=== PATIENT | female | born 2000 | race Caucasian/White ===

== ENCOUNTER 2023-06-08 12:32 | Inpatient (IN) | payer OTHER ==
[~2023-06-08] VITALS: Ht 152.4 cm; Wt 77.1 kg
[2023-06-08] VITALS (34 sets, daily range): BP systolic 125–170; BP diastolic 74–107
[2023-06-08] MEDS ORDERED: TUMS750C5 PO (13:08)
[2023-06-08] MEDS ORDERED: MULTTAB20 PO (13:08)
[2023-06-08] MEDS ORDERED: CLAR10CA3 PO (13:08)
[2023-06-08] MEDS ORDERED: HOME MED LIST COMPLETE! XX SCH (13:10)
[2023-06-08] MEDS ORDERED: LACTATED RINGER'S 1000 ML IV STA (14:27)
[2023-06-08] MEDS ORDERED: TRANEXAMIC ACID INJection 1,000 MG in NS 100 ML IV PRN (14:30)
[2023-06-08] MEDS ORDERED: OXYTOCIN DRIP 30 UNITS in IV 1 EA IV PRN ×4 (14:30)
[2023-06-08] MEDS ORDERED: LIDOCAINE 1% MDV 20ML VIAL INFIL PRN (14:30)
[2023-06-08] MEDS ORDERED: LR 1,000 ML IV SCH (14:30)
[2023-06-08] MEDS ORDERED: miSOPROStol 50MCG 1/2 TABLET PO PRN (14:30)
[2023-06-08] MEDS ORDERED: CARBOPROST TROMETHAMINE 250 MCG/ML AMP IM PRN (14:30)
[2023-06-08 14:32] LABS: HEMATOCRIT 34.6 % (36.0-47.0); HEMOGLOBIN 11.5 g/dl (12.0-15.5); MEAN CORPUSCULAR HEMOGLOBIN 29.1 pg (27.0-33.0); MEAN CORPUSCULAR HGB CONC 33.2 g/dl (32.0-36.5); MEAN CORPUSCULAR VOLUME 87.6 fl (80.0-96.0); PLATELET COUNT, AUTOMATED 209 10^3/uL (150-450); RED BLOOD COUNT 3.95 10^6/uL (4.00-5.40); WHITE BLOOD COUNT 9.4 10^3/uL (4.0-10.0)
[2023-06-08] MEDS ORDERED: miSOPROStol 50MCG 1/2 TABLET SL PRN (14:55)
[2023-06-08] MEDS ORDERED: NALOXONE INJ 0.4MG/1ML VIAL IV PRN (20:40)
[2023-06-08] MEDS ORDERED: ePHEDrine SULFATE 25 MG/5 ML(5MG/ML) SYRINGE IVP PRN (20:40)
[2023-06-08] MEDS ORDERED: LR 500 ML IV PRN (20:40)
[2023-06-08] MEDS ORDERED: EPIDURAL/PCA KEYS XX PRN (20:40)
[2023-06-08] MEDS ORDERED: FENTANYL/ROPIVACAINE/NACL BAG 100 ML EPIDURAL SCH (20:40)
[2023-06-08] MEDS ORDERED: diphenhydrAMINE 50MG/ML VIAL IV PRN (20:40)
[2023-06-08] MEDS ORDERED: ONDANSETRON 4MG 2ML VIAL IV PRN (20:40)
[2023-06-09] VITALS (32 sets, daily range): BP systolic 98–168; BP diastolic 55–94; TEMP 96.7; O2SAT 99
[2023-06-09] MEDS ORDERED: TERBUTALINE SULFATE 1 MG/ML 1ML VIAL As Ordered ONE (01:19)
[2023-06-09] MEDS ORDERED: METHYLERGONOVINE MALEATE 0.2MG/ML 1ML VIAL IM PRN (03:05)
[2023-06-09] MEDS ORDERED: OXYTOCIN DRIP 30 UNITS in IV 1 EA IV SCH (03:05)
[2023-06-09] MEDS: LR 1,000 ML IV SCH ×3 (03:05→20:16)
[2023-06-09] MEDS ORDERED: DIBUCAINE 1% OINTMENT 30GM TOP PRN (03:05)
[2023-06-09] MEDS ORDERED: DOCUSATE SODIUM 100MG CAPSULE PO PRN (03:05)
[2023-06-09] MEDS ORDERED: METOCLOPRAMIDE INJ 10MG/2ML VIAL IV PRN (03:05)
[2023-06-09] MEDS ORDERED: ONDANSETRON 4MG 2ML VIAL IV PRN (03:05)
[2023-06-09] MEDS ORDERED: RHOGAM 300MCG (1500IU) INJ IM SCH (03:05)
[2023-06-09 03:42] LABS: CORD GAS ABE A -14.8; CORD GAS HCO3 A 17.5 MMOL/L; CORD GAS O2 SAT A 70.5 %; CORD GAS PCO2 A 67.2 mmHg; CORD GAS PH A 7.033 UNITS; CORD GAS SBC A 13.2 MMOL/L; CORD GAS TCO2 A 19.5 MMOL/L
[2023-06-09 03:43] LABS: CORD GAS ABE V -8.3; CORD GAS HCO3 V 19.9 MMOL/L; CORD GAS O2 SAT V 68.1 %; CORD GAS PCO2 V 50.5 mmHg; CORD GAS PH V 7.214 UNITS; CORD GAS PO2 V 32.2 mmHg; CORD GAS SBC V 17.2 MMOL/L; CORD GAS TCO2 V 21.5 MMOL/L
[2023-06-09] MEDS: ACETAMINOPHEN 500 MG TAB PO SCH ×4 (04:00→22:53)
[2023-06-09] MEDS: IBUPROFEN 800 MG TAB PO SCH ×4 (04:00→22:00)
[2023-06-09] MEDS: LABETALOL 200 MG TAB PO SCH ×2 (06:32→20:22)
[2023-06-09 08:37] LABS: HEMATOCRIT 33.7 % (36.0-47.0); HEMOGLOBIN 11.3 g/dl (12.0-15.5); MEAN CORPUSCULAR HEMOGLOBIN 29.3 pg (27.0-33.0); MEAN CORPUSCULAR HGB CONC 33.5 g/dl (32.0-36.5); MEAN CORPUSCULAR VOLUME 87.3 fl (80.0-96.0); PLATELET COUNT, AUTOMATED 162 10^3/uL (150-450); RED BLOOD COUNT 3.86 10^6/uL (4.00-5.40); WHITE BLOOD COUNT 19.5 10^3/uL (4.0-10.0)
[2023-06-09 09:00] LABS: URIC ACID 6.1 MG/DL (3.1-7.8)
[2023-06-09] MEDS ORDERED: PRENATAL VITAMINS CHEWABLE TABLET PO SCH (09:00)
[2023-06-09 09:01] LABS: LDH LACTATE DEHYDROGENASE 384 U/L (120-246)
[2023-06-09 09:03] LABS: ALBUMIN 2.1 G/DL (3.2-5.2); ALKALINE PHOSPHATASE 144 U/L (46-116); ALT/SGPT 16 U/L (7.0-40); AST/SGOT 31 U/L (<34); BILIRUBIN,TOTAL 0.5 MG/DL (0.3-1.2); BLOOD UREA NITROGEN 7 MG/DL (9-23); CALCIUM LEVEL 8.1 MG/DL (8.5-10.1); CARBON DIOXIDE LEVEL 18 MMOL/L (20-31); CHLORIDE LEVEL 105 MMOL/L (98-107); CREATININE FOR GFR 0.61 MG/DL (0.55-1.30); GLOMERULAR FILTRATION RATE > 60.0 (>60); GLUCOSE, FASTING 74 MG/DL (60-100); POTASSIUM SERUM 3.7 MMOL/L (3.5-5.1); SODIUM LEVEL 135 MMOL/L (136-145); TOTAL PROTEIN 4.8 G/DL (5.7-8.2)
[2023-06-09] MEDS: PRENATAL VITAMINS CHEWABLE TABLET PO SCH (09:27)
[2023-06-09] MEDS: LORATADINE 10 MG TAB PO SCH (09:27)
[2023-06-09] MEDS ORDERED: MAG Sulf (L&D) 4 GM/100 ML 4 GM in IV 1 EA IV ONE (09:30)
[2023-06-09] MEDS: MAG Sulf (OBGYN) 20GM/500ML 20,000 MG in IV 1 EA IV SCH ×2 (10:37→20:16)
[2023-06-10] VITALS (10 sets, daily range): BP systolic 130–152; BP diastolic 78–91; O2SAT 99–100
[2023-06-10] MEDS: LR 1,000 ML IV SCH (03:05)
[2023-06-10] MEDS: IBUPROFEN 800 MG TAB PO SCH ×3 (05:41→21:47)
[2023-06-10] MEDS: ACETAMINOPHEN 500 MG TAB PO SCH ×4 (05:42→21:47)
[2023-06-10 06:33] LABS: HEMATOCRIT 29.3 % (36.0-47.0); HEMOGLOBIN 9.7 g/dl (12.0-15.5); MEAN CORPUSCULAR HEMOGLOBIN 29.4 pg (27.0-33.0); MEAN CORPUSCULAR HGB CONC 33.1 g/dl (32.0-36.5); MEAN CORPUSCULAR VOLUME 88.8 fl (80.0-96.0); PLATELET COUNT, AUTOMATED 157 10^3/uL (150-450); WHITE BLOOD COUNT 10.6 10^3/uL (4.0-10.0)
[2023-06-10] MEDS: LORATADINE 10 MG TAB PO SCH (09:27)
[2023-06-10] MEDS: LABETALOL 200 MG TAB PO SCH ×2 (09:27→20:47)
[2023-06-10] MEDS: PRENATAL VITAMINS CHEWABLE TABLET PO SCH (09:28)
[2023-06-11 01:45] VITALS: BP 131/64; TEMP 99.2; O2SAT 98
[2023-06-11 02:00] VITALS: BP 131/64; O2SAT 98
[2023-06-11] MEDS: ACETAMINOPHEN 500 MG TAB PO SCH ×2 (03:53→10:20)
[2023-06-11 05:35] VITALS: BP 153/84; TEMP 97.5; O2SAT 100
[2023-06-11] MEDS: IBUPROFEN 800 MG TAB PO SCH (05:48)
[2023-06-11 09:00] VITALS: BP 154/84; O2SAT 99
[2023-06-11] MEDS ORDERED: MEASLES,MUMPS,RUBELLA VACCINE INJ (MMR-II) SC.IMMUN ONE (09:00)
[2023-06-11 09:19] VITALS: BP 154/84
[2023-06-11] MEDS: LABETALOL 200 MG TAB PO SCH (09:19)
[2023-06-11] MEDS: PRENATAL VITAMINS CHEWABLE TABLET PO SCH (09:20)
[2023-06-11] MEDS ORDERED: IBUP80TA PO (09:54)
[2023-06-11] MEDS ORDERED: ACET-683 PO (09:54)
[2023-06-11] MEDS ORDERED: LABE20TAB PO (09:54)
[2023-06-11] MEDS: LORATADINE 10 MG TAB PO SCH (10:20)
== END 2023-06-11 11:05 | disposition home or self-care (01) | DRG 807 ==
LOC: M LDO 12:32 → M LDI 13:40 → M OBS 06-09 05:40
PROVIDERS: ADMIT Advanced Practice Midwife; ATTEND Obstetrics & Gynecology
PROC: 3E033VJ Introduction of Other Hormone into Peripheral Vein, Percutaneous Approach (ICD-10-PCS; 2023-06-08)
PROC: 10E0XZZ Delivery of Products of Conception, External Approach (ICD-10-PCS; principal; 2023-06-09)
DX: O14.04 Mild to moderate pre-eclampsia, complicating childbirth (principal); Z37.0 Single live birth; Z3A.37 37 weeks gestation of pregnancy; O69.81X0 Labor and delivery complicated by cord around neck, without compression, not applicable or unspecified; O14.15 Severe pre-eclampsia, complicating the puerperium

== ENCOUNTER → 2025-07-29 | Outpatient (REF) | payer BC, OTHER ==
[~2025-07-29] MED LIST: ACET-683 PO; CLAR10CA3 PO; IBUP80TA PO; IRON1TAB2 PO; LABE20TAB PO; MULTTAB20 PO; TUMS750C5 PO; UNIS25TA3 PO; VITA100065 PO
[2025-07-31 15:03] LABS: HPV APTIMA Not Detected (Not Detected)
== END ==
LOC: M PLALAB 08:16
PROVIDERS: ATTEND Obstetrics & Gynecology
DX: Z12.4 Encounter for screening for malignant neoplasm of cervix (principal)
CPT/HCPCS: 87624; G0123